=== PATIENT | male | born 1980 | race Caucasian/White ===

== ENCOUNTER 2021-03-14 16:51 | Emergency (ER) | payer OTHER ==
[~2021-03-14] VITALS: Ht 167.6 cm; Wt 123.4 kg
[2021-03-14] MEDS ORDERED: MOBIC15 MG PO (19:28)
[2021-03-14 19:51] VITALS: BP 124/81
== END 2021-03-14 20:04 | disposition home or self-care (01) ==
LOC: ER 16:51
DX: S93.402A Sprain of unspecified ligament of left ankle, initial encounter (principal); Z88.0 Allergy status to penicillin; X50.1XXA Overexertion from prolonged static or awkward postures, initial encounter; Y93.01 Activity, walking, marching and hiking; Y92.89 Other specified places as the place of occurrence of the external cause; Y99.8 Other external cause status